=== PATIENT | female | born 1990 | race Caucasian/White ===

== ENCOUNTER 2017-02-24 16:15 | Emergency (ER) | payer SELFPAY ==
[2017-02-24 16:38] VITALS: RESP 16
[2017-02-24 16:51] LABS: PLATELET COUNT 261 10^3/uL (150-400)
--- NOTE | 2017-02-24 17:35 | EDPHY ---
H & P Stated Complaint: pt states that she is feeling like she needs some support mentally - Personal History LMP (Females 10-55): 8-14 Days Ago Current Tetanus Diphtheria and Acellular Pertussis (TDAP): Yes - Medical/Surgical History Hx Asthma: No Hx Chronic Respiratory Disease: No Hx Diabetes: No Hx Cardiac Disease: No Hx Renal Disease: No Hx Cirrhosis: No Hx Alcoholism: No Hx HIV/AIDS: No Hx Splenectomy or Spleen Trauma: No Other PMH: boarderline personality disorder - Social History Smoking Status: Current some day smoker HPI/ROS: Chief complaint: Depression, thoughts of suicide, on mental health hold History of present illness: This is a 26-year-old female brought to the emergency department by the police on a mental health hold. Patient reports increasing depression. She is feeling hopeless. She is now having thoughts of suicide. No specific plan. She did try to kill yourself a number of years ago. She denies homicidal ideation. She denies illness or injury. No other complaints at this time. Review of systems: A 10 point review of systems was obtained and other than described above was negative (Vinh Burciaga) - Physical Exam Exam: General Appearance: Alert, nontoxic. Eyes: Pupils equal and round no pallor or injection. ENT, Mouth: Mucous membranes moist. Respiratory: There are no retractions, lungs are clear to auscultation. Cardiovascular: Regular rate and rhythm. Gastrointestinal: Abdomen is soft and non tender, no masses, bowel sounds normal. Neurological: Alert and oriented x4. Strength and sensation intact and symmetrical. Skin: Warm and dry, no rashes. Musculoskeletal: Neck is supple non tender. Extremities are symmetrical, full range of motion. Psychiatric: Patient is oriented X 3, appears sad. (Vinh Burciaga) Constitutional: Initial Vital Signs Temperature (C) 36.7 C 02/24/17 16:34 Heart Rate 74 02/24/17 16:34 Respiratory Rate 16 02/24/17 16:34 Blood Pressure 142/84 H 02/24/17 16:34 O2 Sat (%) 96 02/24/17 16:34 O2 Delivery Mode Room Air Allergies/Adverse Reactions: Cephalosporins Allergy (Verified 02/24/17 16:34) shellfish derived Allergy (Verified 02/24/17 16:34) Home Medications: Medication Instructions Recorded Curvularia 02/24/17 Iron 02/24/17 Medical Decision Making ED Course/Re-evaluation: Patient seen under the supervision of my secondary supervising physician Dr. Judith Barahona. Patient presents to the emergency department on a mental health hold. She is medically evaluated and cleared for psychiatric evaluation. This is pending at time of dictation. Care of patient turned over to Dr. Jarrett Lizarraga at end of shift. (Vinh Burciaga) 0324: Patient has been seen evaluated by mental health. Dr. Tariq with psychiatry as been consult. The M1 hold has been lifted. Patient contracts for safety. She does not want hurt herself or anybody else. She is ready for discharge. I did Greet and meet with her. She has no complaints. She is ready to be discharged from the emergency room. Resources have been provided. And return precautions have been discussed in (Jarrett Lizarraga) Differential Diagnosis: Included but not limited to depression, bipolar, schizophrenia, substance abuse (Vinh Burciaga) Other Provider: The patient was evaluated and managed by the Physician Disability Case Manager. My co- signature indicates that I have reviewed this chart and I agree with the findings and plan of care as documented. I am the secondary supervising physician. (Judith Barahona) - Data Points Laboratory Results: Laboratory Results 02/24/17 16:35 02/24/17 16:35 Departure - Departure Disposition: Home, Routine, Self-Care Clinical Impression: Depression Condition: Good Instructions: Depression (ED) Additional Instructions: 1. Return emergency room if you have any further thoughts of wanting to hurt yourself or anybody else. Referrals: NONE *PRIMARY CARE P,. [Primary Care Provider] - As per Instructions
[2017-02-24 23:05] VITALS: TEMP 98.6
[2017-02-25 03:34] VITALS: BP 135/84; PULSE 72; O2SAT 96
== END 2017-02-25 03:36 | disposition home or self-care (01) ==
DX: F32.9 Major depressive disorder, single episode, unspecified (principal); F17.200 Nicotine dependence, unspecified, uncomplicated
CPT/HCPCS: 80305; G0480

== ENCOUNTER 2017-08-19 01:57 | Emergency (ER) | payer OTHER ==
[2017-08-19 02:02] VITALS: BP 131/87
[2017-08-19] MEDS ORDERED: IBUPROFEN 800 MG TAB PO ONE (02:02)
--- NOTE | 2017-08-19 02:02 | EDPHY ---
H & P Time Seen by Provider: 08/19/17 01:59 HPI/ROS: HPI CHIEF COMPLAINT: Medical clearance for long-term, left ankle pain HISTORY OF PRESENT ILLNESS: 27-year-old female, history of anemia borderline personality disorder, presents emergency room by ambulance with police for medical clearance for long-term. Patient was in a verbal altercation earlier this evening and jumped off a balcony landing on her left ankle. She rolled her left ankle now has left lateral ankle pain. No other injuries. Patient complains of 3/10 left lateral ankle pain. She is brought here for medical clearance for long-term. Past Medical History: Borderline personality disorder, anemia Past Surgical History: Denies surgical history Social History: Denies drugs alcohol tobacco tonight. Family History: Noncontributory ROS REVIEW OF SYSTEMS: A comprehensive 10 point review of systems is otherwise negative aside from elements mentioned in the history of present illness. Exam Constitutional triage nursing summary reviewed, vital signs reviewed, awake/ alert. Eyes normal conjunctivae and sclera, EOMI, PERRLA. HENT normal inspection, atraumatic, moist mucus membranes, no epistaxis, neck supple/ no meningismus, no raccoon eyes. Respiratory clear to auscultation bilaterally, normal breath sounds, no respiratory distress, no wheezing. Cardiovascular rate normal, regular rhythm, no murmur, no edema, distal pulses normal. Gastrointestinal soft, non-tender, no rebound, no guarding, normal bowel sounds, no distension, no pulsatile mass. Genitourinary no CVA tenderness. Musculoskeletal left lower extremity: Neurovascularly intact, good distal pulse , good cap refill, mild tenderness and swelling over the left lateral malleolus. No crepitus, compartments soft. Full range of motion. no midline vertebral tenderness, full range of motion, no calf swelling, no tenderness of extremities, no meningismus, good pulses, neurovascularly intact. Skin pink, warm, & dry, no rash, skin atraumatic. Neurologic awake, alert and oriented x 3, AAOx3, moves all 4 extremities equally, motor intact, sensory intact, CN II-XII intact, normal cerebellar, normal vision, normal speech. Psychiatric normal mood/affect. Heme/Lymph/Immune no lymphadenopathy. Differential Diagnosis: Includes but is not limited to in a particular order left ankle sprain, left ankle fracture, soft tissue injury, dislocation Medical Decision Making: Plan for this patient x-ray left ankle, ice pack, ibuprofen. Re-evaluate. Re-evaluation: Ankle x-ray reviewed by myself. No evidence of acute fracture malalignment. Patient medically cleared for long-term. Recommend anti-inflammatory pain medicine, ice, elevation, Joseluis wrap. Follow up with Orthopedics outpatient as needed. Source: Patient, Police, EMS - Medical/Surgical History Hx Asthma: No Hx Chronic Respiratory Disease: No Hx Diabetes: No Hx Cardiac Disease: No Hx Renal Disease: No Hx Cirrhosis: No Hx Alcoholism: No Hx HIV/AIDS: No Hx Splenectomy or Spleen Trauma: No Other [facility] - Social History Smoking Status: Current some day smoker Constitutional: Initial Vital Signs Temperature (C) 36.8 C 08/19/17 01:58 Heart Rate 99 08/19/17 01:58 Respiratory Rate 18 08/19/17 01:58 Blood Pressure 131/87 H 08/19/17 01:58 O2 Sat (%) 96 08/19/17 01:58 O2 Delivery Mode Room Air Allergies/Adverse Reactions: Cephalosporins Allergy (Verified 08/19/17 02:00) Iodinated Contrast- Oral and IV Dye Allergy (Verified 08/19/17 02:00) shellfish derived Allergy (Verified 08/19/17 02:00) Home Medications: Medication Instructions Recorded Jarad 02/24/17 Medical Decision Making - Data Points Medications Given: Discontinued Medications Ibuprofen (Motrin) 800 mg PO EDNOW ONE Stop: 08/19/17 02:03 Last Admin: 08/19/17 02:07 Dose: 800 mg Departure - Departure Disposition: Home, Routine, Self-Care Clinical Impression: Ankle sprain Qualifiers: Encounter type: initial encounter Involved ligament of ankle: unspecified ligament Laterality: left Qualified Code(s): S93.402A - Sprain of unspecified ligament of left ankle, initial encounter Condition: Good Instructions: Ankle Sprain (ED) Additional Instructions: 1. Medically cleared for long-term. 2. Ice your ankle. 3. Anti-inflammatory pain medicine. Referrals: Patient,NotPresent [Primary Care Provider] - As per Instructions Ifeanyi Rivas MD [Medical Doctor] - As per Instructions
== END 2017-08-19 02:23 | disposition home or self-care (01) ==
LOC: EDUNIT#
DX: S93.402A Sprain of unspecified ligament of left ankle, initial encounter (principal); F17.200 Nicotine dependence, unspecified, uncomplicated; W13.0XXA Fall from, out of or through balcony, initial encounter; Y99.8 Other external cause status; Y93.89 Activity, other specified